=== PATIENT | male | born 1985 | race American Indian/Alaskan Native ===

== ENCOUNTER 2017-03-28 15:24 | Emergency (ER) | payer OTHER ==
[2017-03-28 15:24] VITALS: BMI 27.8
[2017-03-28 15:37] VITALS: BP 131/81; PULSE 100; RESP 19; TEMP 98.6; O2SAT 100
--- NOTE | 2017-03-28 17:00 | ED PDOC ---
Arrival/HPI - General Chief Complaint: ENT Problem Time Seen by Provider: 03/28/17 15:44 Historian: Patient - History of Present Illness Narrative History of Present Illness (Text): 03/28/17 17:09 31-year-old male presents today with a 5 day history of left ear pain. Patient denies any recent trauma or injury. Denies decreased hearing. No medications have been taken for pain at home. Patient states he's noticed slight discharge from the ear. Complaining of sharp stabbing pain to the ear. Denies headaches dizziness or weakness. No chest pain or shortness of breath. Denies fevers or chills. Denies dizziness or weakness. Symptom Onset: Gradual Symptom Course: Worsening Quality: Aching, Stabbing, Throbbing Severity Level: 8 Past Medical History - Provider Review Nursing Documentation Reviewed: Yes - Travel History Have you recently traveled outside [place] w/in the past 3 mons?: No - Infectious Disease Hx of Infectious Diseases: None - Tetanus Immunization Tetanus Immunization: Unknown - Past Medical History Past Medical History: No Previous - Psychiatric Hx Depression: No Hx Emotional Abuse: No Hx Physical Abuse: No Hx Substance Use: No - Surgical History Hx Appendectomy: Yes Hx Orthopedic Surgery: Yes (left knee surgery) - Anesthesia Hx Anesthesia: Yes Hx Anesthesia Reactions: No Hx Malignant Hyperthermia: No - Suicidal Assessment Feels Threatened In Home Enviroment: No Family/Social History - Physician Review Nursing Documentation Reviewed: Yes Family/Social History: Unknown Family HX Smoking Status: Current Some Days Smoker Hx Alcohol Use: Yes Hx Substance Use: No Allergies/Home Meds Allergies/Adverse Reactions: Allergies No Known Allergies Allergy (Verified 03/28/17 15:36) Review of Systems - Review of Systems Constitutional: absent: Fatigue, Fevers Respiratory: absent: SOB, Cough Cardiovascular: absent: Chest Pain, Palpitations Gastrointestinal: absent: Abdominal Pain, Nausea, Vomiting Musculoskeletal: absent: Arthralgias, Back Pain, Neck Pain Skin: absent: Rash, Pruritis Neurological: absent: Headache, Dizziness Psychiatric: absent: Anxiety, Depression Physical Exam Vital Signs Reviewed: Yes Vital Signs Temp Pulse Resp BP Pulse Ox 03/28/17 15:32 98.6 F 100 H 19 131/81 100 Temperature: Afebrile Blood Pressure: Normal Pulse: Regular Respiratory Rate: Normal Appearance: Positive for: Well-Appearing, Non-Toxic, Comfortable Pain Distress: None Mental Status: Positive for: Alert and Oriented X 3 - Systems Exam Head: Present: Atraumatic Mouth: Present: Moist Mucous Membranes Respiratory/Chest: Present: Clear to Auscultation Cardiovascular: Present: Regular Rate and Rhythm Abdomen: No: Tenderness Upper Extremity: Present: Normal ROM Lower Extremity: Present: Normal ROM Skin: Present: Warm, Dry, Normal Color. No: Rashes Psychiatric: Present: Alert, Oriented x 3 Medical Decision Making ED Course and Treatment: 03/28/17 17:41 Patient is nontoxic well appearing in no distress. Vital signs are stable toradol amoxicilllin Patient reassessment: Patient feeling better after medications i advised f/u with primary care physician within the next 2 days, advised to increase fluids take medications as prescribed and return if symptoms worsen persist or if new symptoms develop IMPRESSION; otitis media, otitis externa Motrin every 6 hours as needed for pain/fever reduction Increase fluids Amoxicillin; 3 times daily x 10 days Floxin otic; 10 drops to affected ear once daily Follow up primary care physician within the next 2 days Follow up with the ENT specialist within the next 2 days. Return if symptoms worsen persist or if the symptoms develop - Medication Orders Current Medication Orders: Discontinued Medications Amoxicillin (Amoxil 500 Mg Cap) 500 mg PO STAT STA PRN Reason: Protocol Stop: 03/28/17 16:07 Last Admin: 03/28/17 16:20 Dose: 500 mg Ketorolac Tromethamine (Toradol) 60 mg IM STAT STA Stop: 03/28/17 16:07 Last Admin: 03/28/17 16:20 Dose: 60 mg Disposition/Present on Arrival - Present on Arrival Any Indicators Present on Arrival: No History of DVT/PE: No History of Uncontrolled Diabetes: No Urinary Catheter: No History of Decub. Ulcer: No History Surgical Site Infection Following: None - Disposition Have Diagnosis and Disposition been Completed?: Yes Diagnosis: Otitis media, Otitis externa Disposition: HOME/ ROUTINE Disposition Time: 16:50 Patient Plan: Discharge Condition: GOOD Discharge Instructions (ExitCare): Otitis Media (ED), Otitis Externa (ED) Additional Instructions: Motrin every 6 hours as needed for pain/fever reduction Increase fluids Amoxicillin; 3 times daily x 10 days Floxin otic; 10 drops to affected ear once daily Follow up primary care physician within the next 2 days Follow up with the ENT specialist within the next 2 days. Return if symptoms worsen persist or if the symptoms develop Prescriptions: Amoxicillin 500 mg PO TID #30 tab Ibuprofen [Motrin] 600 mg PO Q6H PRN #20 tab PRN Reason: pain/fever reduction Ofloxacin Otic 0.3% [Floxin 5 ml] 5 drop BID #1 bottle Referrals: Hadley Canales DO [Staff Provider] - Follow up with primary Eddi Ocasio MD [Staff Provider] - Follow up with primary Forms: [employer] (Tristanian), WORK NOTE
== END 2017-03-28 17:20 | disposition home or self-care (01) ==
LOC: ED 15:24
DX: H66.90 Otitis media, unspecified, unspecified ear (principal); H60.90 Unspecified otitis externa, unspecified ear; F17.210 Nicotine dependence, cigarettes, uncomplicated
CPT/HCPCS: 96372; 99283; J1885

== ENCOUNTER 2017-03-30 09:28 | Emergency (ER) | payer OTHER ==
[2017-03-30 09:36] VITALS: BMI 29.2
[2017-03-30 09:40] VITALS: BP 115/71; PULSE 88; RESP 19; TEMP 98.3; O2SAT 98
--- NOTE | 2017-03-30 10:23 | ED PDOC ---
Arrival/HPI - General Chief Complaint: ENT Problem Time Seen by Provider: 03/30/17 10:12 Historian: Patient - History of Present Illness Narrative History of Present Illness (Text): 03/30/17 10:12 sImael Cho is a 31 year old male who presents to the emergency department complaining of continuous left ear pain for a few days. Patient states that he was in the emergency department two days ago but was not able to fill Floxin prescription because hew as not able to afford it. Patient has no other complaints at this time. Time/Duration: < week Symptom Onset: Gradual Symptom Course: Unchanged Activities at Onset: Light Context: Home Past Medical History - Provider Review Nursing Documentation Reviewed: Yes - Infectious Disease Hx of Infectious Diseases: None - Tetanus Immunization Tetanus Immunization: Unknown - Past Medical History Past Medical History: No Previous - Psychiatric Hx Depression: No Hx Emotional Abuse: No Hx Physical Abuse: No Hx Substance Use: No - Surgical History Hx Appendectomy: Yes Hx Orthopedic Surgery: Yes (left knee surgery) - Anesthesia Hx Anesthesia: Yes Hx Anesthesia Reactions: No Hx Malignant Hyperthermia: No - Suicidal Assessment Feels Threatened In Home Enviroment: No Family/Social History - Physician Review Nursing Documentation Reviewed: Yes Family/Social History: No Known Family HX Smoking Status: Current Some Days Smoker Hx Alcohol Use: Yes Frequency of alcohol use: Socially Hx Substance Use: No Allergies/Home Meds Allergies/Adverse Reactions: Allergies No Known Allergies Allergy (Verified 03/30/17 09:36) Physical Exam - Physical Exam Narrative Physical Exam (Text): - Review of Systems Constitutional: Normal. absent: Fatigue, Weight Change, Fevers Eyes: Normal ENT: Left ear pain Respiratory: Normal absent: SOB, Cough, Sputum Cardiovascular: Normal absent: Chest pain, Palpitations, Syncope Gastrointestinal: Normal absent: Abdominal pain, Diarrhea, Nausea, Vomiting Genitourinary: Normal. absent: Dysuria, Frequency, Hematuria Musculoskeletal: Normal. absent: Arthralgias, Back Pain, Neck Pain Skin: Normal Neurological: Normal absent: Focal Weakness Endocrine: Normal Hemo/Lymphatic: Normal Psychiatric: Normal - Physical exam Patient appears age appropriate, speaking full sentences without difficulty. - Systems Exam Head: Purulent draining in left ear. Consistent with otitis externa. Present: Atraumatic, Normocephalic Pupils: Present: PERRL Extraocular Muscles: Present: EOMI Conjunctiva: Present: Normal Mouth: Present: Moist Mucous Membranes Neck: Present: Normal Range of Motion. No: MIDLINE TENDERNESS, Paraspinal Tenderness Respiratory/Chest: Present: Clear to Auscultation, Good Air Exchange. No: Respiratory Distress, Accessory Muscle Use, Tachypnic Cardiovascular: Present: Regular Rate and Rhythm, Normal S1, S2, Peripheral Pulses Present. No: Murmurs Abdomen: Present: Normal Bowel Sounds, No: Tenderness, Peritoneal Signs, Rebound, Guarding, Distention Back: Present: Normal Inspection. No: Midline Tenderness, Paraspinal Tenderness Upper Extremity: Present: Normal Inspection. No: Cyanosis, Edema Lower Extremity: Present: Normal Inspection. No: Edema Neurological: Present: GCS=15, Speech Normal, cranial nerves II through XII fully intact with no cerebellar abnormality, neuro-sensory fully intact. No focal neurological deficits. Skin: Present: Warm, Dry, Normal Color. No: Rashes Lymphatic: Present: OX3, NI, NC Psychiatric: Present: Alert, Oriented x 3, Normal Insight, Normal Concentration 03/30/17 12:42 Vital Signs Reviewed: Yes Vital Signs Temp Pulse Resp BP Pulse Ox 03/30/17 09:39 98.3 F 88 19 115/71 98 Temperature: Afebrile Blood Pressure: Normal Pulse: Regular Respiratory Rate: Normal Appearance: Positive for: Well-Appearing, Non-Toxic, Comfortable Pain Distress: None Mental Status: Positive for: Alert and Oriented X 3 - Systems Exam Ears: No: Erythema, Normal Canal (purulent dc from L. R. unremarkable. No swelling b/l) Medical Decision Making ED Course and Treatment: 03/30/17 10:12 Impression: 31 year old male complaining of continuous left ear pain for a few days. Exam c/ w otitis externa. Plan: -- Discharge Prior Visits: Notes and results from previous visits were reviewed. Patient last seen in the ED on 03/30/17 for 5 day duration of left ear pain. Patient was discharged home. Progress Notes: 03/30/17 10:25 Spoke with our pharmacist who states that medication will be $20-25 in the pharmacy. Patient will be given prescription. Pt instructed to go to the pharmacy to fill the Rx. Pt states he will report now. Pt states he understands to return to the ER right away for new or worsening symptoms or for inability to f/u with PMD or specialist as instructed. Patient states that he fully agrees with and understands discharge instructions. States that he agrees with the plan and disposition. Verbalized and repeated discharge instructions and plan. I have given the patient opportunity to ask any additional questions. - Lab Interpretations I have reviewed the lab results: Yes - Scribe Statement The provider has reviewed the documentation as recorded by the Scribe Jailene Benito Provider Scribe Attestation: All medical record entries made by the Scribe were at my direction and personally dictated by me. I have reviewed the chart and agree that the record accurately reflects my personal performance of the history, physical exam, medical decision making, and the department course for this patient. I have also personally directed, reviewed, and agree with the discharge instructions and disposition. Disposition/Present on Arrival - Present on Arrival Any Indicators Present on Arrival: No History of DVT/PE: No History of Uncontrolled Diabetes: No Urinary Catheter: No History of Decub. Ulcer: No History Surgical Site Infection Following: None - Disposition Have Diagnosis and Disposition been Completed?: Yes Diagnosis: Otitis externa Disposition: HOME/ ROUTINE Disposition Time: 18:11 Patient Plan: Discharge Condition: GOOD Discharge Instructions (ExitCare): Otitis Externa (ED) Additional Instructions: PLEASE RETURN TO THE EMERGENCY DEPARTMENT FOR NEW OR WORSENING SYMPTOMS. RETURN RIGHT AWAY IF YOU CANNOT FOLLOW UP WITH YOUR PRIMARY CARE DOCTOR, CLINIC, OR SPECIALIST IN 1-2 DAYS. Prescriptions: Ofloxacin Otic 0.3% [Floxin 0.3% Otic Soln] 50 drop AD DAILY #1 bottle Referrals: Luis Felipe Power DO [Staff Provider] - Follow up with primary Hadley Canales DO [Staff Provider] - Follow up with primary PCP,NO [Primary Care Provider] - Follow up with primary Forms: [employer] (Greenlandic)
== END 2017-03-30 10:30 | disposition home or self-care (01) ==
LOC: ED 09:28
DX: H60.92 Unspecified otitis externa, left ear (principal)

== ENCOUNTER 2017-12-31 18:06 | Emergency (ER) | payer OTHER ==
[2017-12-31 18:08] VITALS: BMI 29.2
[2017-12-31 18:36] VITALS: RESP 18; TEMP 97.8
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
[2017-12-31 21:28] VITALS: BP 135/72; PULSE 79; O2SAT 97
--- NOTE | 2018-01-01 09:05 | RAD ---
HISTORY: Routine medical exam COMPARISON: No prior. TECHNIQUE: Chest PA and lateral FINDINGS: LUNGS: No active pulmonary disease. PLEURA: No significant pleural effusion identified. No pneumothorax apparent. CARDIOVASCULAR: Normal. OSSEOUS STRUCTURES: No significant abnormalities. VISUALIZED UPPER ABDOMEN: Normal. OTHER FINDINGS: None. IMPRESSION: No active disease.
== END 2017-12-31 21:25 | disposition home or self-care (01) ==
LOC: ED 18:06
DX: S09.90XA Unspecified injury of head, initial encounter (principal); S20.219A Contusion of unspecified front wall of thorax, initial encounter; W31.89XA Contact with other specified machinery, initial encounter; Y99.0 Civilian activity done for income or pay; F17.200 Nicotine dependence, unspecified, uncomplicated

== ENCOUNTER 2018-01-26 04:55 | Emergency (ER) | payer OTHER ==
[2018-01-26 05:43] VITALS: BMI 30.7
[2018-01-26] MEDS ORDERED: Sodium Chloride 0.9% 1,000 ML IV STA (07:25)
--- NOTE | 2018-01-26 07:41 | ED PDOC ---
Arrival/HPI - General Chief Complaint: Flu-like Symptoms Time Seen by Provider: 01/26/18 07:16 Historian: Patient - History of Present Illness Narrative History of Present Illness (Text): 01/26/18 07:35 32 year old male, who presents to the emergency department complaining of general malaise/fatigue, associated with diffused headache and sore throat since 4 days. Patient reports he might have the flu and has been trying over the counter medication (Teraflu) with min improvement. Patient states having a subjective fever, as well as diaphoresis, lack of appetite, and rhinorrhea. He notes taking numerous showers in order to ease the discomfort. Additionally, he reports having left ear discomfort. Patient denies sick contact, travel, chest pain, shortness of breath, cough, abdominal pain, or vomiting; + nausea is noted ; + decr appetite; pt denied LOC; pt denied urinary/bowel changes; pt is here for further eval; pt's without other complaints. PCP: NONE Time/Duration: < week Symptom Onset: Sudden Symptom Course: Unchanged Severity Level: Severe Activities at Onset: Rest Context: Home Past Medical History - Provider Review Nursing Documentation Reviewed: Yes - Travel History Have you recently traveled outside [place] w/in the past 3 mons?: No - Past History Past History: No Previous - Infectious Disease Hx of Infectious Diseases: None - Tetanus Immunization Tetanus Immunization: Unknown - Past Medical History Past Medical History: No Previous - Psychiatric Hx Psychophysiologic Disorder: No Hx Substance Use: No - Surgical History Hx Appendectomy: Yes Hx Orthopedic Surgery: Yes (left knee surgery/screws and pins) - Anesthesia Hx Anesthesia: Yes Hx Anesthesia Reactions: No Hx Malignant Hyperthermia: No - Suicidal Assessment Feels Threatened In Home Enviroment: No Family/Social History - Physician Review Nursing Documentation Reviewed: Yes Family/Social History: Unknown Family HX Smoking Status: Current Some Days Smoker Hx Alcohol Use: Yes Frequency of alcohol use: Socially Hx Substance Use: No Hx Substance Use Treatment: No Allergies/Home Meds Allergies/Adverse Reactions: Allergies No Known Allergies Allergy (Verified 12/31/17 18:15) Review of Systems - Review of Systems Constitutional: Fatigue, Fevers Eyes: Normal ENT: Sore Throat, Rhinorrhea, Other (left ear discomfort). absent: Voice Changes Respiratory: absent: SOB, Cough Cardiovascular: absent: Chest Pain Gastrointestinal: Nausea, Appetite Changes. absent: Abdominal Pain, Vomiting Genitourinary Male: absent: Dysuria Musculoskeletal: absent: Back Pain Skin: absent: Rash Neurological: Headache Endocrine: Diaphoresis Hemo/Lymphatic: Normal Psychiatric: Normal Physical Exam - Physical Exam Narrative Physical Exam (Text): 01/26/18 General: alert/awake, GCS = 15, oriented x 3, resting in bed, uncomfortable, cooperative, interactive; NAD Head: NC/AT EYE: PERRLA, EOMI, sclera anicteric, no nystagmus, no photophobia; visual field intact b/l Facial: WNL ENT: no effusion/retractions/bulgings noted, no erythema noted, no FB/masses noted, no discharge/bleeding noted Oral: uvula/tongue are midline, no exudate/lesions, no drooling/stridor, no dysphonia; intact dentitions; mild dry oral mucosa NECK: intact ROM, no midline tenderness, no nuchal rigidity, no meningeal signs ; no step off Chest: CTA b/l, no w/r/r; no tachypenia, no accessory muscle use noted Cardiac: +S1, +S2, no m/r/r, no tachycardia Abdominal: +BS, soft/nd/nt, well nourished patient; no masses/rebound/guarding/ rigidity; no palacios's sign, no mcburney's point tenderness Extremities: intact ROM, strength 5/5 grossly intact in all limbs, neurovasc intact b/l; + ambulatory; reflex +2/2; no pitting edema/swelling b/l; no Simran' s sign b/l BACK: no step off, no midline tenderness, NO crepitus, no gross deformities noted; Intact ROM SKIN: cap refill ~ 1 sec, no ulcerations, no petechiae, no rashes; no gross pallor NEURO: CNII-XII WNL, no facial asymmetries, no slurr speech, oriented x 3 NIH stroke scale ~ 0 Psych: normal insight, normal affect; follows command with ease Vital Signs Reviewed: Yes Vital Signs Temp Pulse Resp BP Pulse Ox 01/26/18 09:00 99 F 88 16 145/77 98 01/26/18 05:46 99.0 F 89 20 139/95 H 100 Temperature: Afebrile Blood Pressure: Hypertensive Pulse: Regular Respiratory Rate: Normal Appearance: Positive for: Well-Appearing, Non-Toxic, Uncomfortable. No: Comfortable, Ill-Appearing, Unkept Pain Distress: None Mental Status: Positive for: Alert and Oriented X 3 - Systems Exam Head: Present: Atraumatic, Normocephalic Medical Decision Making ED Course and Treatment: 01/26/18 Impression: 32 year old male with sore throat, headache, subjective fever, and lack of appetite since 4 days. I have considered all Differential Diagnosis regarding pt's chief medical complaints/clinical findings included but are not limited to: viral syndrome; dehydration Plan: -- Chest X-ray -- Labs -- Decadron, Toradol, and Sodium Chloride -- Urinalysis -- Reassess and disposition Progress Notes: vital signs WNL 01/26/18 10:33 pt is doing well pt is more comfortable pt tolerated po well pt is made aware of his medical results pt is encouraged fluid hydration pt is encouraged bland diet for now until symptoms improve pt will follow up as directed pt will be discharged home Re-evaluation Time: 10:33 Reassessment Condition: Improved - Lab Interpretations Lab Results: 01/26/18 07:45 01/26/18 07:45 Lab Results 01/26/18 09:08: Urine Color Yellow, Urine Appearance Clear, Urine pH 5.5, Ur Specific [place] >= 1.030, Urine Protein 30 H, Urine Glucose (UA) Negative, Urine Ketones 15 H, Urine Blood Trace-lysed H, Urine Nitrate Negative, Urine Bilirubin Negative, Urine Urobilinogen 1.0 H, Ur Leukocyte Esterase Negative, Urine RBC Negative, Urine WBC 0 - 2, Urine Other Usperm 01/26/18 07:45: Influenza Typ A,B (EIA) Negative for flu a/b 01/26/18 07:45: Grp A Beta Strep Ag Negative 01/26/18 07:45: Sodium 144, Potassium 3.9, Chloride 102, Carbon Dioxide 29, Anion Gap 17, BUN 12, Creatinine 1.2, Est GFR ( Amer) > 60, Est GFR (Non- Af Amer) > 60, Random Glucose 104, Calcium 9.9, Total Bilirubin 0.6, AST 24, ALT 28, Alkaline Phosphatase 67, Total Protein 8.4 H, Albumin 4.7, Globulin 3.7 , Albumin/Globulin Ratio 1.2 01/26/18 07:45: WBC 8.4, RBC 4.97, Hgb 15.9, Hct 45.1, MCV 90.7, MCH 32.0, MCHC 35.3, RDW 13.6, Plt Count 207, MPV 10.6, Gran % 64.3, Lymph % (Auto) 26.7, Keith % (Auto) 8.1 H, Eos % (Auto) 0.7 L, Baso % (Auto) 0.2, Gran # 5.37, Lymph # ( Auto) 2.2, Keith # (Auto) 0.7 H, Eos # (Auto) 0.1, Baso # (Auto) 0.02 I have reviewed the lab results: Yes Interpretation: Abnormal lab values (abnl Urinalysis, otherwise WNL) - RAD Interpretation Narrative RAD Interpretations (Text): 01/26/18 09:20 Chest X-ray: Creator : Sandeep Sapp MD COMPARISON: 12/31/2017 FINDINGS: LUNGS: No active pulmonary disease. PLEURA: No significant pleural effusion identified. No pneumothorax apparent. CARDIOVASCULAR: Normal. OSSEOUS STRUCTURES: No significant abnormalities. VISUALIZED UPPER ABDOMEN: Normal. OTHER FINDINGS: None. IMPRESSION: No active disease. Radiology Orders: 01/26/18 07:24 CHEST TWO VIEWS (PA/LAT) [RAD] Stat Financial Aids Officer: Radiologist - Medication Orders Current Medication Orders: Discontinued Medications Dexamethasone (Decadron Inj) 10 mg IVP STAT STA Stop: 01/26/18 07:26 Last Admin: 01/26/18 07:40 Dose: 10 mg IVP Administration Document 01/26/18 07:40 AD (Rec: 01/26/18 07:58 AD [id number]) Charges for Administration # of IVP Administrations 1 Sodium Chloride (Sodium Chloride 0.9%) 1,000 mls @ 999 mls/hr IV .Q1H1M STA Stop: 01/26/18 08:25 Last Admin: 01/26/18 07:40 Dose: 999 mls/hr eMAR Start Stop Document 01/26/18 07:40 AD (Rec: 01/26/18 07:58 AD [id number]) Intravenous Solution Start Date 01/26/18 Start Time 07:40 Ketorolac Tromethamine (Toradol) 30 mg IVP STAT STA Stop: 01/26/18 07:26 Last Admin: 01/26/18 07:40 Dose: 30 mg MAR Pain Assessment Document 01/26/18 07:40 AD (Rec: 01/26/18 07:58 AD [id number]) Pain Reassessment Is this a pain reassessment? No IVP Administration Document 01/26/18 07:40 AD (Rec: 01/26/18 07:58 AD [id number]) Charges for Administration # of IVP Administrations 1 - Scribe Statement The provider has reviewed the documentation as recorded by the Vilmaibe Britni Ndiaye Provider Scribe Attestation: All medical record entries made by the Scribe were at my direction and personally dictated by me. I have reviewed the chart and agree that the record accurately reflects my personal performance of the history, physical exam, medical decision making, and the department course for this patient. I have also personally directed, reviewed, and agree with the discharge instructions and disposition. Disposition/Present on Arrival - Present on Arrival Any Indicators Present on Arrival: No History of DVT/PE: No History of Uncontrolled Diabetes: No Urinary Catheter: No History of Decub. Ulcer: No History Surgical Site Infection Following: None - Disposition Have Diagnosis and Disposition been Completed?: Yes Diagnosis: Dehydration, Viral syndrome, Malaise and fatigue Disposition: HOME/ ROUTINE Disposition Time: 10:35 Patient Plan: Discharge Patient Problems: Current Active Problems Problem Status Onset Dehydration Acute Malaise and fatigue Acute Viral syndrome Acute Condition: STABLE Discharge Instructions (ExitCare): Dehydration, Adult (DC), Viral Syndrome (DC) Print Language: GERMAN Additional Instructions: Make sure to see your doctor in 1-2 days DRINK PLENTY OF FLUIDS take your medications as prescribed DONT SMOKE if you smoke DONT drink if you drink alcohol RETURN TO ED IF worse pain, cant breath, persistent vomiting, high fever >101- 102 for hours, altered behavior, slurr speech, facial changes, focal weakness ( arm/leg or both), unable to urinate, heavy/persistent bleeding, passing out, chest pain, or other medical emergencies Prescriptions: Ibuprofen [Motrin] 600 mg PO QID PRN #30 tab PRN Reason: Pain, Mild (1-3) Lidocaine 2% Viscous 10 ml MM TID PRN #100 ml PRN Reason: Pain, Mild (1-3) Ondansetron [Zofran Odt] 4 mg PO TID PRN #10 odt PRN Reason: Nausea/Vomiting Referrals: Erick Duran, [Primary Care Provider] - Follow up with primary [facility] [Outside] - Follow up with primary [facility] [Outside] - Follow up with primary [facility] [Outside] - Follow up with primary Forms: [facility] ([place]), WORK NOTE
[2018-01-26 08:05] LABS: BASO # 0.02 K/mm3 (0.0-2.0); BASO % 0.2 % (0.0-3.0); EOS # 0.1 (0.0-0.7); EOS % 0.7 % (1.5-5.0); GRAN # 5.37 (1.4-6.5); GRAN % 64.3 % (50.0-68.0); HEMOGLOBIN 15.9 g/dL (14.0-18.0); LYMPH # 2.2 (1.2-3.4); LYMPH % 26.7 % (22.0-35.0); MEAN CELL VOLUME 90.7 fl (80.0-105.0); MEAN CORPUSCULAR HGB CONC 35.3 g/dl (31.0-37.0); MEAN PLATELET VOLUME 10.6 fl (7.0-11.0); MONO # 0.7 (0.1-0.6); MONO % 8.1 % (1.0-6.0); RBC 4.97 10^6/uL (3.5-6.1); RED CELL DISTRIBUTION WIDTH 13.6 % (11.5-14.5); WHITE BLOOD COUNT 8.4 10^3/ul (4.5-11.0)
[2018-01-26 08:14] LABS: ALB/GLOB RATIO 1.2 (1.1-1.8); ALBUMIN 4.7 g/dL (3.0-4.8); ALT/SGPT 28 U/L (7-56); AST/SGOT 24 U/L (17-59); BLOOD UREA NITROGEN 12 mg/dL (7-21); CALCIUM 9.9 mg/dL (8.4-10.5); GFR AFRICAN-AMERICAN > 60; GFR NON-AFRICAN AMERICAN > 60
--- NOTE | 2018-01-26 09:18 | RAD ---
HISTORY: fever/sore throat/weakness COMPARISON: 12/31/2017 TECHNIQUE: Chest PA and lateral FINDINGS: LUNGS: No active pulmonary disease. PLEURA: No significant pleural effusion identified. No pneumothorax apparent. CARDIOVASCULAR: Normal. OSSEOUS STRUCTURES: No significant abnormalities. VISUALIZED UPPER ABDOMEN: Normal. OTHER FINDINGS: None. IMPRESSION: No active disease.
[2018-01-26 09:36] LABS: PH,URINE 5.5 (4.7-8.0); URINE BILIRUBIN NEGATIVE (NEGATIVE); URINE BLOOD TRACE-LYSED (NEGATIVE); URINE GLUCOSE (UA) NEGATIVE (NEGATIVE); URINE LEUKOCYTE ESTERASE NEGATIVE Leu/uL (NEGATIVE); URINE PROTEIN 30 mg/dL (<30 mg/dL)
[2018-01-26 09:43] LABS: URINE COLOR YELLOW (YELLOW)
[2018-01-26 09:44] LABS: URINE APPEARANCE CLEAR (CLEAR)
[2018-01-26 09:48] VITALS: RESP 16; O2SAT 98
[2018-01-26 10:02] LABS: URINE RBC NEGATIVE /hpf (0-2); URINE WBC 0 - 2 /hpf (0-6)
[2018-01-26 10:59] VITALS: BP 121/72; PULSE 78; TEMP 98.5
== END 2018-01-26 10:55 | disposition home or self-care (01) ==
LOC: ED 04:55
DX: E86.0 Dehydration (principal); B34.9 Viral infection, unspecified; R53.81 Other malaise; R53.83 Other fatigue
CPT/HCPCS: 71046; 80053; 81001; 85025; 87070; 87430; 87804; 96374; 96375; 99283; J1100; J1885; J7030

== ENCOUNTER 2018-01-28 09:27 | Emergency (ER) | payer OTHER ==
[2018-01-28 09:27] VITALS: BMI 30.7
[2018-01-28 09:35] VITALS: RESP 18
--- NOTE | 2018-01-28 10:00 | ED PDOC ---
Arrival/HPI - General Chief Complaint: ENT Problem Time Seen by Provider: 01/28/18 09:36 Historian: Patient EM Caveat: Acuity of Condition - History of Present Illness Narrative History of Present Illness (Text): 01/28/18 09:50 Pt is a 32 yr old male who was last seen and treated in this ED for flu-like symptoms and released who presents today for continued sore throat, headache, subjective fever, trismus and a swollen tongue 1 week. Pt states that he is only able to drink fluids and not solids due to limited jaw movement and difficulty swallowing. Reports pain and swelling along the left submandibular aspect and ear and has nasal congestion with posterior pharyngeal drainage. He has been taking theraflu with no change in status. Denies recent travel and says he received all the childhood vaccinations including diptheria. Denies chest pain but reports sob; no nausea, vomiting, diarrhea, neck rigidity, recent dental pain or procedure, or psychological complaints. 01/28/18 10:32 Time/Duration: 1 week Symptom Onset: Gradual Symptom Course: Unchanged Quality: Aching, Pressure, Tightness Severity Level: 5 Activities at Onset: Rest Context: Home Past Medical History - Provider Review Nursing Documentation Reviewed: Yes - Travel History Have you recently traveled outside [place] w/in the past 3 mons?: No - Past History Past History: No Previous - Infectious Disease Hx of Infectious Diseases: None - Tetanus Immunization Tetanus Immunization: Unknown - Past Medical History Past Medical History: No Previous - Psychiatric Hx Psychophysiologic Disorder: No Hx Substance Use: No - Surgical History Hx Appendectomy: Yes Hx Orthopedic Surgery: Yes (left knee surgery/screws and pins) - Anesthesia Hx Anesthesia: Yes Hx Anesthesia Reactions: No Hx Malignant Hyperthermia: No - Suicidal Assessment Feels Threatened In Home Enviroment: No Family/Social History - Physician Review Nursing Documentation Reviewed: Yes Family/Social History: Unknown Family HX Smoking Status: Heavy Smoker > 10 Cigarettes Daily Hx Alcohol Use: Yes Frequency of alcohol use: Socially Hx Substance Use: No Hx Substance Use Treatment: No Allergies/Home Meds Allergies/Adverse Reactions: Allergies No Known Allergies Allergy (Verified 12/31/17 18:15) Review of Systems - Review of Systems Constitutional: Normal, Fatigue, Fevers Eyes: Normal. absent: Vision Changes ENT: Normal, TMJ Pain, Voice Changes, Sore Throat, Sinus Congestion Respiratory: Normal Cardiovascular: Normal. absent: Chest Pain Gastrointestinal: Normal, Stool Changes, Constipation. absent: Abdominal Pain, Diarrhea Genitourinary Male: Normal. absent: Dysuria Musculoskeletal: Normal. absent: Arthralgias Skin: Normal Neurological: Normal Endocrine: Normal Hemo/Lymphatic: Normal Psychiatric: Normal Physical Exam Vital Signs Reviewed: Yes Vital Signs Temp Pulse Resp BP Pulse Ox 01/28/18 14:07 98.5 F 77 18 126/79 99 01/28/18 13:28 98.6 F 68 18 110/74 99 01/28/18 09:34 97.7 F 105 H 18 91/61 L 97 Temperature: Afebrile Blood Pressure: Hypotensive Pulse: Regular Respiratory Rate: Normal Appearance: Positive for: Well-Appearing, Non-Toxic, Comfortable Pain Distress: Moderate Mental Status: Positive for: Alert and Oriented X 3 - Systems Exam Head: Present: Atraumatic, Normocephalic Pupils: Present: PERRL Extroacular Muscles: Present: EOMI Conjunctiva: Present: Normal, Injected Ears: Present: Normal, NORMAL TM, Normal Canal. No: Erythema, TM Bulging, Fluid Mouth: Present: Moist Mucous Membranes, Dry, Trismus, Normal Lips, Other (left buccal and gingival area swollen, greyish and tender to palpation). No: Drooling Pharnyx: Present: ERYTHEMA, Peritonsilar Swelling, Muffled/Hoarse Voice, Other ( unable to visualize posterior pharynx d/t limited opening of jaw; ) Nose (Internal): Present: Normal Inspection Neck: Present: Normal Range of Motion. No: Meningeal Signs, MIDLINE TENDERNESS , Paraspinal Tenderness Respiratory/Chest: Present: Clear to Auscultation, Good Air Exchange. No: Respiratory Distress, Accessory Muscle Use Cardiovascular: Present: Regular Rate and Rhythm, Normal S1, S2. No: Murmurs Abdomen: Present: Normal Bowel Sounds. No: Tenderness, Distention, Peritoneal Signs, Rebound, Guarding, McBurney's Point Tender, Rovsing's Sign Present Back: Present: Normal Inspection Upper Extremity: Present: Normal Inspection. No: Cyanosis, Edema Lower Extremity: Present: Normal Inspection. No: Edema Neurological: Present: GCS=15, CN II-XII Intact, Speech Normal Skin: Present: Warm, Dry, Normal Color. No: Rashes Lymphatic: Present: Cervical Adenopathy (left cervical chain offbearer and swollen and extends to the mandible) Psychiatric: Present: Alert, Oriented x 3, Normal Insight, Normal Concentration Medical Decision Making ED Course and Treatment: 01/28/18 10:00 Impression Pt is a 32 yr old male who was last seen and treated in this ED for flu-like symptoms and released who presents today for continued sore throat, headache, subjective fever, trismus and a swollen tongue 1 week. On exam, left buccal area swollen and greyish in color, hypersensitivity too light touch of the left cervical chain, TM clear and non-bulging b/l, limited TMJ ROM d/t pain and swelling, *last BM 5 days ago but good BS and passing gas Working Dx: facial cellulitis/Ludwigs, dental abscess, parotits, sialolithiasis Plan Labs, fluids, decadron, clindamycin drip CT maxillofacial assess and dispo Progress note 01/28/18 10:23 01/28/18 11:42 Pt resting while on clindamycin drip and fluids c/o pain now in throat and headache; Toradol 30 mg ivp stat WBC: 12.9 with elevated granulocytes; remains afebrile 01/28/18 13:[address]: Left-sided tonsillar abscess measuring 24 mm in height and 12 mm diameter. Contacted Dr Hooks and spoke with Dr. Livingston who is covering out of hospital; advised to have a residential treatment counselor assess the pt; if stable, send to the clinic for possible drainage of abscess; case fully discussed with Dr Delcid who also evaluated the pt and is stable to be released but will f/u with Dr. Livingston today Stressed the importance of going to office directly and not waiting to be assessed by Dr Livingston.; pt verbally acknowledged that he understood and is willing to go Pt reports less pain and swelling and is able to speak and swallow with ease; asking for food will continue on clindamycin 300mg PO caps q6 x 10 days 01/28/18 13:47 swallow test pending-->passed Instructed pt to go directly to ENT office at [address] [place] [address] Confirmed with rn clinical appeals at Dr Livingston's that patient was heading over in a few minutes Instructed pt on taking antibiotics for 10 days; if worsening of pain, throat swelling or difficulty breathing, return to ED immed - Lab Interpretations Lab Results: 01/28/18 10:40 01/28/18 10:40 Lab Results 01/28/18 12:09: Urine Color Yellow, Urine Appearance Clear, Urine pH 6.0, Ur Specific [place] 1.015, Urine Protein Trace H, Urine Glucose (UA) Negative, Urine Ketones Negative, Urine Blood Negative, Urine Nitrate Negative, Urine Bilirubin Negative, Urine Urobilinogen 1.0 H, Ur Leukocyte Esterase Negative, Urine RBC 0 - 2, Urine WBC 0 - 2, Ur Epithelial Cells 1 - 3, Urine Bacteria Mod , Urine Other [place] 01/28/18 10:40: Sodium 142, Chloride 102, Potassium 4.6, Carbon Dioxide 29, Anion Gap 16, BUN 10, Creatinine 1.1, Est GFR ( Amer) > 60, Est GFR (Non- Af Amer) > 60, Random Glucose 109, Calcium 9.6, Total Bilirubin 0.6, AST 31, ALT 27, Alkaline Phosphatase 76, Total Protein 8.1, Albumin 4.4, Globulin 3.7, Albumin/Globulin Ratio 1.2 01/28/18 10:40: WBC 12.8 H D, RBC 4.80, Hgb 15.3, Hct 43.7, MCV 91.0, MCH 31.9, MCHC 35.0, RDW 13.4, Plt Count 256, MPV 10.4, Gran % 76.8 H, Lymph % (Auto) 15.7 L, [place] % (Auto) 7.1 H, Eos % (Auto) 0.2 L, Baso % (Auto) 0.2, Gran # 9.82 H, Lymph # (Auto) 2.0, [place] # (Auto) 0.9 H, Eos # (Auto) 0.0, Baso # (Auto) 0.02 01/28/18 10:39: pO2 26 L, VBG pH 7.33, VBG pCO2 58.0, VBG HCO3 30.6 H, VBG Total CO2 32.4 H, VBG O2 Sat (Calc) 53.5, VBG Base Excess 3.2 H, VBG Potassium 4.4, Sodium 139.0, Chloride 102.0, Glucose 107, Lactate 0.9, FiO2 21.0, Venous Blood Potassium 4.4 Interpretation: Abnormal lab values (Elevated whites @12.8; lactate neg) - RAD Interpretation Narrative RAD Interpretations (Text): 01/28/18 13:40 PROCEDURE: CT NECK WITH CONTRAST HISTORY: buccal and tongue swelling left side COMPARISON: None TECHNIQUE: CT of the neck with intravenous contrast. Coronal and sagittal reformats generated. Intravenous contrast dose: 100 cc of Omni 350 Radiation dose: DLP 869 mGy-cm This CT exam was performed using one or more of the following dose reduction techniques: Automated exposure control, adjustment of the mA and/or kV according to patient size, and/or use of iterative reconstruction technique. FINDINGS: NASOPHARYNX: Unremarkable. SUPRAHYOID NECK: There is tonsillar swelling bilaterally. There is a hypodense area in the left tonsil consistent with tonsillar abscess. This measures 24 mm in height and 12 mm in diameter. The swelling extends stent into the left piriform sinus INFRAHYOID NECK: Unremarkable larynx, hypopharynx, and supraglottic space. Vocal cords intact. MASS: None. GLANDS: Parotid and submandibular glands unremarkable. Normal size thyroid gland, without nodule. LYMPH NODES: Normal. No lymphadenopathy. CERVICAL SPINE: No fracture or focal lesion. VASCULAR STRUCTURES: Unremarkable. OTHER FINDINGS: None. IMPRESSION: Left-sided tonsillar abscess measuring 24 mm in height and 12 mm diameter. Radiology Orders: 01/28/18 10:20 MAXILLOFACIAL W/CONTRAST [CT] Stat - Medication Orders Current Medication Orders: Discontinued Medications Dexamethasone (Decadron Inj) 10 mg IVP STAT STA Stop: 01/28/18 10:11 Last Admin: 01/28/18 10:41 Dose: 10 mg IVP Administration Document 01/28/18 10:41 [email or web address] (Rec: 01/28/18 10:[email or web address] [facility] [place]- [id number]) Charges for Administration # of IVP Administrations 1 Clindamycin Phosphate 600 mg/ (Sodium Chloride) 54 mls @ 108 mls/hr IVPB STAT STA PRN Reason: Protocol Stop: 01/28/18 10:39 Last Admin: 01/28/18 10:41 Dose: 108 mls/hr eMAR Start Stop Document 01/28/18 10:41 [email or web address] (Rec: 01/28/18 10:[email or web address] [facility] [place]- [id number]) Intravenous Solution Start Date 01/28/18 Start Time 10:41 End Date 01/28/18 Lactated Ringer's (Lactated Ringer's) 1,000 mls @ 500 mls/hr IV .Q2H ELI Last Admin: 01/28/18 10:42 Dose: 500 mls/hr eMAR Start Stop Document 01/28/18 10:42 [email or web address] (Rec: 01/28/18 10:42 [email or web address] [place]- [id number]) Intravenous Solution Start Date 01/28/18 Start Time 10:42 Ketorolac Tromethamine (Toradol) 30 mg IVP STAT STA Stop: 01/28/18 11:41 Last Admin: 01/28/18 11:59 Dose: 30 mg MAR Pain Assessment Document 01/28/18 11:59 [email or web address] (Rec: 01/28/18 11:[address]- [id number]) Pain Reassessment Is this a pain reassessment? No Sleep Is patient sleeping during reassessment? No Presence of Pain Presence of Pain Yes Pain Scale Used Pain Scale Used Numeric Location Pain Location Body Site Abdomen Description Description Constant Intensity of Pain at present 7 Pain Behavior Facial Grimacing Aggravating Factors Changing Position Alleviating Factors/Management Position Change Techniques Alleviating Factors Medication IVP Administration Document 01/28/18 11:59 [email or web address] (Rec: 01/28/18 11:[address]- [id number]) Charges for Administration # of IVP Administrations 1 Disposition/Present on Arrival - Present on Arrival Any Indicators Present on Arrival: Yes History of DVT/PE: No History of Uncontrolled Diabetes: No Urinary Catheter: No History of Decub. Ulcer: No History Surgical Site Infection Following: None - Disposition Have Diagnosis and Disposition been Completed?: Yes Diagnosis: Peritonsillar abscess Disposition: HOME/ ROUTINE Disposition Time: 14:00 Patient Plan: Discharge Condition: GOOD Discharge Instructions (ExitCare): Peritonsillar Abscess, Adult (DC) Additional Instructions: MATTHIEU LOONEY, thank you for letting us take care of you today. Your provider was Rhett Delcid DO and you were treated for PERITONSILLAR ABSCESS. The emergency medical care you received today was directed at your acute symptoms. If you were prescribed any medication, please fill it and take as directed. It may take several days for your symptoms to resolve. Return to the Emergency Department if your symptoms worsen, do not improve, or if you have any other problems. Please go directly to Dr Stevenson's office to have your throat and abscess evaluated and possibly drained. Continue taking the antibiotic we have given you for the full 10 days prescribed. If you experience any difficulty in breathing or swallowing, return to the emergency department immediately. Please contact your doctor or call one of the physicians/clinics you have been referred to that are listed on the Patient Visit Information form that is included in your discharge packet. Bring any paperwork you were given at discharge with you along with any medications you are taking to your follow up visit. Our treatment cannot replace ongoing medical care by a primary care provider outside of the emergency department. Thank you for allowing the [facility] team to be part of your care today. If you had an X-Ray or CT scan: A Radiologist will review the ED reading if any change in treatment is needed we will contact you. If you had a blood, urine, or wound culture: It will take several days for the results, if any change in treatment is needed we will contact you. Prescriptions: Clindamycin [Cleocin] 300 mg PO QID 10 Days #40 cap Ibuprofen [Motrin Tab] 400 mg PO Q6 #20 tab Referrals: [facility] [Primary Care Provider] - Follow up with primary Pal Livingston DO [Staff Provider] - Follow up with primary Forms: [employer] ([place]), WORK NOTE
[2018-01-28] MEDS ORDERED: Lactated Ringer's 1,000 ML IV SCH (10:30)
[2018-01-28 10:44] LABS: VENOUS BLOOD GAS BASE EXCESS 3.2 mmol/L (0.0-2.0); VENOUS BLOOD GAS PO2 26 mm/Hg (30-55); VENOUS BLOOD PH 7.33 (7.32-7.43)
[2018-01-28 10:44] LABS: BASO # 0.02 K/mm3 (0.0-2.0); BASO % 0.2 % (0.0-3.0); EOS % 0.2 % (1.5-5.0); GRAN # 9.82 (1.4-6.5); GRAN % 76.8 % (50.0-68.0); HEMOGLOBIN 15.3 g/dL (14.0-18.0); LYMPH % 15.7 % (22.0-35.0); MEAN CORPUSCULAR HEMOGLOBIN 31.9 pg (25.0-35.0); MEAN PLATELET VOLUME 10.4 fl (7.0-11.0); MONO # 0.9 (0.1-0.6); MONO % 7.1 % (1.0-6.0); RBC 4.8 10^6/uL (3.5-6.1); RED CELL DISTRIBUTION WIDTH 13.4 % (11.5-14.5); WHITE BLOOD COUNT 12.8 10^3/ul (4.5-11.0)
[2018-01-28] MEDS ORDERED: Iohexol 350 MG/100 ML VIAL ONE (10:45)
[2018-01-28 11:05] LABS: ALB/GLOB RATIO 1.2 (1.1-1.8); ALBUMIN 4.4 g/dL (3.0-4.8); ALT/SGPT 27 U/L (7-56); AST/SGOT 31 U/L (17-59); BLOOD UREA NITROGEN 10 mg/dL (7-21); CALCIUM 9.6 mg/dL (8.4-10.5); GFR AFRICAN-AMERICAN > 60; GFR NON-AFRICAN AMERICAN > 60
[2018-01-28 12:14] LABS: URINE BILIRUBIN NEGATIVE (NEGATIVE); URINE BLOOD NEGATIVE (NEGATIVE); URINE GLUCOSE (UA) NEGATIVE (NEGATIVE); URINE LEUKOCYTE ESTERASE NEGATIVE Leu/uL (NEGATIVE); URINE PROTEIN TRACE mg/dL (<30 mg/dL)
[2018-01-28 12:19] LABS: URINE APPEARANCE CLEAR (CLEAR); URINE COLOR YELLOW (YELLOW)
[2018-01-28 12:26] LABS: URINE BACTERIA MOD (NEG); URINE RBC 0 - 2 /hpf (0-2); URINE WBC 0 - 2 /hpf (0-6)
--- NOTE | 2018-01-28 12:33 | CT ---
PROCEDURE: CT NECK WITH CONTRAST HISTORY: buccal and tongue swelling left side COMPARISON: None TECHNIQUE: CT of the neck with intravenous contrast. Coronal and sagittal reformats generated. Intravenous contrast dose: 100 cc of Omni 350 Radiation dose: DLP 869 mGy-cm This CT exam was performed using one or more of the following dose reduction techniques: Automated exposure control, adjustment of the mA and/or kV according to patient size, and/or use of iterative reconstruction technique. FINDINGS: NASOPHARYNX: Unremarkable. SUPRAHYOID NECK: There is tonsillar swelling bilaterally. There is a hypodense area in the left tonsil consistent with tonsillar abscess. This measures 24 mm in height and 12 mm in diameter. The swelling extends stent into the left piriform sinus INFRAHYOID NECK: Unremarkable larynx, hypopharynx, and supraglottic space. Vocal cords intact. MASS: None. GLANDS: Parotid and submandibular glands unremarkable. Normal size thyroid gland, without nodule. LYMPH NODES: Normal. No lymphadenopathy. CERVICAL SPINE: No fracture or focal lesion. VASCULAR STRUCTURES: Unremarkable. OTHER FINDINGS: None. IMPRESSION: Left-sided tonsillar abscess measuring 24 mm in height and 12 mm diameter.
[2018-01-28 13:29] VITALS: O2SAT 99
[2018-01-28 14:08] VITALS: BP 126/79; PULSE 77; TEMP 98.5
== END 2018-01-28 14:07 | disposition home or self-care (01) ==
LOC: ED 09:27
DX: J36 Peritonsillar abscess (principal); F17.210 Nicotine dependence, cigarettes, uncomplicated
CPT/HCPCS: 70488; 80053; 81001; 82803; 85025; 87040; 96374; 96375; 99283; J1100; J1885; J7120; Q9967